=== PATIENT | female | born 1980 | race Caucasian/White ===

== ENCOUNTER 2018-04-09 12:01 | Emergency (ER) | payer OTHER ==
[2018-04-09] MEDS: DEXAMETHASONE 10 MG/ML 1 ML INJ IM (12:59)
[2018-04-09] MEDS: IPRATROPIUM (NEB) 0.5 MG/2.5 ML AMP HHN (12:59)
[2018-04-09] MEDS: ALBUTEROL 0.083% (NEB) 2.5 MG/3 ML AMP HHN (12:59)
== END 2018-04-09 15:34 | disposition home or self-care (01) ==
LOC: FTE 12:01
DX: J45.901 Unspecified asthma with (acute) exacerbation (principal)
CPT/HCPCS: 71045; 94644; 96372; 99284-25